=== PATIENT | female | born 1960 | race Caucasian/White ===

== ENCOUNTER 2024-01-08 07:47 | Day surgery (SDC) | payer MEDICAID ==
[~2024-01-08] VITALS: Ht 149.9 cm; Wt 63.0 kg
[2024-01-08] MEDS ORDERED: MEPERIDINE 100 MG INJ. 100 MG/ML VIAL ONE (10:49)
[2024-01-08] MEDS ORDERED: MIDAZOLAM HCL 5 MG/5 ML VIAL ONE (10:49)
[2024-01-08 14:06] VITALS: O2SAT 99
[2024-01-08 17:17] VITALS: BP_SYST 121; PULSE 71; RESP 18
== END 2024-01-08 12:30 | disposition home or self-care (01) ==
LOC: SDS 07:47 → SMU 07:48 → SDS 12:30
PROVIDERS: ATTEND Internal Medicine
DX: Z12.11 Encounter for screening for malignant neoplasm of colon (principal); D12.0 Benign neoplasm of cecum; K57.30 Diverticulosis of large intestine without perforation or abscess without bleeding; K64.8 Other hemorrhoids; E78.5 Hyperlipidemia, unspecified; G43.909 Migraine, unspecified, not intractable, without status migrainosus; Z98.891 History of uterine scar from previous surgery; Z90.722 Acquired absence of ovaries, bilateral; Z98.890 Other specified postprocedural states; Z79.899 Other long term (current) drug therapy
CPT/HCPCS: 45380; 88305; 99152; G0378; J2250; J2175